=== PATIENT | male | born 2000 | race Caucasian/White ===

== ENCOUNTER 2019-05-24 16:11 | Emergency (ER) | payer OTHER ==
[2019-05-24 16:19] VITALS: BP 132/81; PULSE 107; RESP 18; TEMP 97.9
[2019-05-24] MEDS ORDERED: KETOROLAC 30 MG/ML 1 ML VIAL IM STA (16:22)
--- NOTE | 2019-05-24 16:35 | ED ---
General Adult HPI - General Chief complaint: Upper Respiratory Infection Stated complaint: Cough/headache Time Seen by Provider: 05/24/19 16:22 Source: patient Mode of arrival: ambulatory Limitations: no limitations - History of Present Illness Initial comments: Dictation was produced using [employer] dictation software. please excuse any grammatical, word or spelling errors. Chief Complaint: 18-year-old male presents with rhinorrhea, sore throat and nasal congestion for 2 days. History of Present Illness: This is a 18-year-old male without any significant comorbidities. He presents today with waxing and waning symptoms of runny nose, sore throat and nasal congestion. Patient reports that his symptoms started 1 week ago. After couple days his symptoms improved. 2 days ago she turned. She states he has a history of uvulitis several months ago. Patient states his symptoms are mild. He does also complain of some mild nonproductive coughing. Denies any constitutional symptoms. The ROS documented in this emergency department record has been reviewed and confirmed by me. Those systems with pertinent positive or negative responses have been documented in the HPI. All other systems are other negative and/or noncontributory. PHYSICAL EXAM: General Impression: Alert and oriented x3, not in acute distress HEENT: Normocephalic atraumatic, extra-ocular movements intact, pupils equal and reactive to light bilaterally, mucous membranes moist, mild erythema to the oropharynx Cardiovascular: Heart regular rate and rhythm, S1&S2 audible, no murmurs, rubs or gallops Chest: Lungs clear to auscultation bilaterally, no rhonchi, no wheeze, no rales Abdomen: Bowel sounds present, abdomen soft, non-tender, non-distended, no organomegaly Musculoskeletal: Pulses present and equal in all extremities, no peripheral edema Motor: no focal deficits noted Neurological: CN II-XII grossly intact, no focal motor or sensory deficits noted Skin: Intact with no visualized rashes Psych: Normal affect and mood ED course: 18-year-old male presents with clinical presentation consistent with URI. Vital signs upon arrival shows heart rate of 107, rest of vital signs within acceptable limits. Rapid strep test negative. Flu test negative. Patient told to take [id number] cold medications. Advised follow-up with primary care physician upon discharge. Return parameters discussed. All questions answered. Work note provided. - Related Data Home Medications Medication Instructions Recorded Confirmed Albuterol Nebulized [Ventolin 2.5 mg INHALATION RT-Q6H PRN 05/10/18 05/10/18 Nebulized] Loratadine [Claritin] 10 mg PO DAILY 05/10/18 05/10/18 Phenyleph/Acetaminophn/Doxylam 2 cap PO Q6H PRN 05/10/18 05/10/18 [Vicks Dayquil-Nyquil Sinex Cap] Phenylephrine/Dm/Acetaminop/GG 2 cap PO Q6H PRN 05/10/18 05/10/18 [Tylenol Cold-Flu Severe Caplet] Previous Rx's Medication Instructions Recorded Amoxicillin 500 mg PO TID #30 capsule 05/10/18 predniSONE 50 mg PO DAILY #5 tablet 05/10/18 Allergies Allergy/AdvReac Type Severity Reaction Status Date / Time No Known Allergies Allergy Verified 05/24/19 16:19 Review of Systems ROS Statement: Those systems with pertinent positive or pertinent negative responses have been documented in the HPI. ROS Other: All systems not noted in ROS Statement are negative. Past Medical History Past Medical History: Asthma History of Any Multi-Drug Resistant Organisms: None Reported Past Surgical History: No Surgical Hx Reported Past Psychological History: Anxiety, Depression Smoking Status: Current every day smoker Past Alcohol Use History: None Reported Past Drug Use History: Marijuana General Exam Limitations: no limitations Course Vital Signs 05/24/19 16:15 Temperature 97.9 F Pulse Rate 107 H Respiratory 18 Rate Blood Pressure 132/81 O2 Sat by Pulse 100 Oximetry Medical Decision Making - Lab Data Lab Results 05/24/19 05/24/19 Range/Units 16:35 16:35 Influenza Type A RNA Not Detected (Not Detectd) Influenza Type B (PCR) Not Detected (Not Detectd) Group A Strep Rapid Negative (Negative) Disposition Clinical Impression: Common cold Disposition: HOME SELF-CARE Condition: Good Instructions (If sedation given, give patient instructions): Upper Respiratory Infection (ED) Is patient prescribed a controlled substance at d/c from ED?: No Referrals: Daniel Hidalgo MD [Primary Care Provider] - 1-2 days Time of Disposition: 17:24
== END 2019-05-24 17:32 | disposition home or self-care (01) ==
LOC: EC 16:11
DX: J00 Acute nasopharyngitis [common cold] (principal); J45.909 Unspecified asthma, uncomplicated; F17.200 Nicotine dependence, unspecified, uncomplicated; Z79.899 Other long term (current) drug therapy
CPT/HCPCS: 87081; 87430; 87502; 96372; 99283